=== PATIENT | female | born 1945 | race Caucasian/White ===

== ENCOUNTER 2017-11-26 07:00 | Inpatient (IN) | payer OTHER ==
[~2017-11-26] VITALS: Ht 154.9 cm; Wt 73.5 kg
[2017-11-26] MEDS ORDERED: METROPOLOL PO (09:02)
[2017-11-26] MEDS ORDERED: CARDIZEM CD240 MG PO (09:03)
[2017-11-26] MEDS ORDERED: HCTZ PO (09:03)
[2017-11-26] MEDS ORDERED: LIPITOR40 MG PO (09:04)
[2017-11-26] MEDS ORDERED: VASOFLEX D1 CA1 EACH PO (09:04)
[2017-11-26] MEDS ORDERED: HYDRALAZINE HCL25 MG PO (09:04)
[2017-11-26] MEDS ORDERED: OMEPRAZOLE40 MG PO (09:05)
[2017-11-26] MEDS ORDERED: INTEGRA CAPSUL1 EACH PO (09:05)
[2017-11-26] MEDS ORDERED: FLONASE16 GM (09:06)
[2017-11-26] MEDS ORDERED: [UNRECOGNIZED DRUG - OTHER] PO (09:06)
[2017-11-26] MEDS ORDERED: SINGULAIR10 MG PO (09:07)
[2017-12-06] MEDS ORDERED: OXYC1TAB9 PO (08:22)
[2017-12-06] MEDS ORDERED: INTEGRA PLUS C1 EACH PO (08:22)
[2017-12-06] MEDS ORDERED: XARELTO10 MG PO (08:22)
== END 2017-12-06 12:32 | DRG 470 ==
LOC: SURG 12-03 06:34 → O/R 12-03 06:34 → SURH 12-03 07:00 → SURG 12-03 13:20
PROVIDERS: Orthopaedic Surgery Sports Medicine
PROC: 0SRD0J9 Replacement of Left Knee Joint with Synthetic Substitute, Cemented, Open Approach (ICD-10-PCS; principal; 2017-12-03 07:30)
DX: M17.12 Unilateral primary osteoarthritis, left knee (principal); I10 Essential (primary) hypertension

== ENCOUNTER 2020-07-22 07:00 | Inpatient (IN) | payer OTHER ==
[~2020-07-22] VITALS: Ht 144.8 cm; Wt 72.6 kg
[~2020-07-22 07:00] MED LIST: CARDIZEM CD240 MG PO; FLONASE16 GM; HCTZ PO; HYDRALAZINE HCL25 MG PO; INTEGRA CAPSUL1 EACH PO; INTEGRA PLUS C1 EACH PO; LIPITOR40 MG PO; METROPOLOL PO; OMEPRAZOLE40 MG PO; OXYC1TAB9 PO; SINGULAIR10 MG PO; VASOFLEX D1 CA1 EACH PO; XARELTO10 MG PO; [UNRECOGNIZED DRUG - OTHER] PO
[2020-07-22] MEDS ORDERED: CALTRATE 600 +1 EACH PO (08:02)
[2020-07-22] MEDS ORDERED: VASOF PO (08:02)
[2020-07-22] MEDS ORDERED: FORTAMET500 MG PO (08:03)
[2020-07-22] MEDS ORDERED: ALENDRONATE SOD70 MG PO (08:03)
[2020-07-22] MEDS ORDERED: CARTIA XT240 MG PO (08:04)
[2020-07-22] MEDS ORDERED: ATACAND32 MG PO (08:04)
[2020-07-27] MEDS ORDERED: INTEGRA PLUS C1 EACH PO (08:36)
[2020-07-27] MEDS ORDERED: VASOFLEX TABLE1 EACH PO (08:48)
[2020-07-27] MEDS ORDERED: HYDROCHLOROTHIA25 MG PO (08:49)
[2020-07-27] MEDS ORDERED: METOPROLOL SUC100 MG PO (08:51)
[2020-07-28] MEDS ORDERED: OXYC1TAB9 PO (07:45)
[2020-07-28] MEDS ORDERED: XARELTO10 MG PO (07:45)
[2020-07-28] MEDS ORDERED: INTEGRA PLUS C1 EACH PO (07:45)
[2020-07-28] MEDS ORDERED: BACTRIM DS TAB1 EACH PO (07:45)
== END 2020-07-28 17:44 | DRG 470 ==
LOC: SURG 07-26 06:10 → O/R 07-26 06:10 → SURG 07-26 13:13
PROVIDERS: ADMIT Orthopaedic Surgery Sports Medicine; ATTEND Orthopaedic Surgery Sports Medicine
PROC: 0SRC0J9 Replacement of Right Knee Joint with Synthetic Substitute, Cemented, Open Approach (ICD-10-PCS; principal; 2020-07-26 09:30)
DX: M17.11 Unilateral primary osteoarthritis, right knee (principal); I10 Essential (primary) hypertension; D64.9 Anemia, unspecified

== ENCOUNTER 2023-07-25 08:22 | Inpatient (IN) | payer OTHER ==
[~2023-07-25] VITALS: Ht 152.4 cm; Wt 73.5 kg
[~2023-07-25 08:22] MED LIST changes: +ALENDRONATE SOD70 MG PO; +ATACAND32 MG PO; +BACTRIM DS TAB1 EACH PO; +CALTRATE 600 +1 EACH PO; +CARTIA XT240 MG PO; +FORTAMET500 MG PO; +HYDROCHLOROTHIA25 MG PO; +METOPROLOL SUC100 MG PO; +VASOF PO; +VASOFLEX TABLE1 EACH PO
[2023-07-31] MEDS ORDERED: FOLIVANE-PLUS1 EACH (15:17)
[2023-07-31] MEDS ORDERED: HYDROCHLOROTHIA25 MG (15:17)
[2023-07-31 20:47] LABS: ABG PH 7.332 (7.35-7.45); ABG PO2 142.5 mmHg (80-100); ABG pCO2 46.3 mmHg (35-45); BASE EXCESS -2.2 mmol/l; BICARBONATE 24 mmol/l (23-25); SaO2 98.9 %
[2023-07-31 20:59] LABS: HEMATOCRIT 40.2 % (36.0-45.00); HEMOGLOBIN 13.5 g/dL (12.0-15.00); MEAN CELL VOLUME 92.5 fL (80.00-100.00); MEAN CORPUSCULAR HEMOGLOBIN 31.1 pg (27.00-32.0); MEAN CORPUSCULAR HGB CONC 33.7 g/dl (32.0-36.0); PLATELET COUNT 262 K/uL (150-450); RED BLOOD COUNT 4.35 M/uL (4.00-6.00); RED CELL DISTRIBUTION WIDTH 15.2 % (11.5-14.5)
[2023-08-01 06:42] LABS: HEMATOCRIT 39.5 % (36.0-45.00); HEMOGLOBIN 12.9 g/dL (12.0-15.00); MEAN CELL VOLUME 93.7 fL (80.00-100.00); MEAN CORPUSCULAR HEMOGLOBIN 30.6 pg (27.00-32.0); MEAN CORPUSCULAR HGB CONC 32.6 g/dl (32.0-36.0); PLATELET COUNT 243 K/uL (150-450); RED BLOOD COUNT 4.21 M/uL (4.00-6.00); RED CELL DISTRIBUTION WIDTH 14.4 % (11.5-14.5)
[2023-08-01 07:38] LABS: ALBUMIN 2.7 gm/dL (3.4-5.0); CALCIUM 8.3 mg/dL (8.5-10.1); CREATININE SERUM 0.6 mg/dL (0.55-1.02); GFR 97.46; POTASSIUM 4.03 mEq/L (3.5-5.1)
[2023-08-01 09:05] LABS: ABG PH 7.407 (7.35-7.45); ABG PO2 85.6 mmHg (80-100); ABG pCO2 38.6 mmHg (35-45); BASE EXCESS -0.6 mmol/l; BICARBONATE 23.8 mmol/l (23-25); SaO2 96.5 %
[2023-08-02 07:14] LABS: HEMATOCRIT 36.8 % (36.0-45.00); MEAN CELL VOLUME 94.2 fL (80.00-100.00); MEAN CORPUSCULAR HEMOGLOBIN 30.6 pg (27.00-32.0); MEAN CORPUSCULAR HGB CONC 32.5 g/dl (32.0-36.0); PLATELET COUNT 232 K/uL (150-450); RED BLOOD COUNT 3.91 M/uL (4.00-6.00); RED CELL DISTRIBUTION WIDTH 14.9 % (11.5-14.5)
[2023-08-02 07:27] LABS: CALCIUM 8.6 mg/dL (8.5-10.1); CREATININE SERUM 0.64 mg/dL (0.55-1.02); GFR 90.46; POTASSIUM 4.12 mEq/L (3.5-5.1)
== END 2023-08-02 13:47 | disposition home or self-care (01) | DRG 330 ==
LOC: O/R 07-31 09:05 → SURH 07-31 11:45 → SURG 07-31 18:38 → SURH 07-31 19:00 → SURG 08-02 13:47
PROVIDERS: Internal Medicine Geriatric Medicine; ADMIT Colon & Rectal Surgery; ATTEND Colon & Rectal Surgery
PROC: 0DBP4ZZ Excision of Rectum, Percutaneous Endoscopic Approach (ICD-10-PCS; 2023-07-31)
PROC: 07BB4ZX Excision of Mesenteric Lymphatic, Percutaneous Endoscopic Approach, Diagnostic (ICD-10-PCS; 2023-07-31)
PROC: 0DTN4ZZ Resection of Sigmoid Colon, Percutaneous Endoscopic Approach (ICD-10-PCS; principal; 2023-07-31 19:00)
DX: C19 Malignant neoplasm of rectosigmoid junction (principal); K92.1 Melena; K66.0 Peritoneal adhesions (postprocedural) (postinfection); Z85.048 Personal history of other malignant neoplasm of rectum, rectosigmoid junction, and anus

== ENCOUNTER → 2023-07-26 07:49 | Outpatient (CLI) | payer OTHER | END | disposition home or self-care (01) | LOC: LAB 07:49 | PROVIDERS: ATTEND Colon & Rectal Surgery | DX: Z03.818 Encounter for observation for suspected exposure to other biological agents ruled out (principal); Z20.822 Contact with and (suspected) exposure to COVID-19 ==

== ENCOUNTER 2023-10-03 05:42 | Day surgery (SDC) | payer OTHER ==
[2023-09-26 09:55] LABS: HEMATOCRIT 41.4 % (36.0-45.00); MEAN CORPUSCULAR HEMOGLOBIN 31.1 pg (27.00-32.0); MEAN CORPUSCULAR HGB CONC 33.7 g/dl (32.0-36.0); PLATELET COUNT 249 K/uL (150-450); RED CELL DISTRIBUTION WIDTH 15.1 % (11.5-14.5)
[2023-09-26 10:37] LABS: INR 0.99; PARTIAL THROMBOPLASTIN TIME 24.3 SECONDS (22.0-34.0); PROTHROMBIN TIME 10.4 SECONDS (9.0-11.5)
[2023-09-26 10:49] LABS: BILIRUBIN TOTAL 0.58 mg/dL (0.3-1.2); CALCIUM 9.9 mg/dL (8.5-10.1); CREATININE SERUM 0.56 mg/dL (0.55-1.02); GFR 105.25; GLOBULINA 3.8 G/DL (2.4-3.5); POTASSIUM 4.26 mEq/L (3.5-5.1); TOTAL PROTEIN 7.8 gm/dL (6.4-8.2)
[~2023-10-03 05:42] MED LIST changes: +FOLIVANE-PLUS1 EACH; +HYDROCHLOROTHIA25 MG
== END 2023-10-03 12:05 | disposition home or self-care (01) ==
LOC: CIR.AMB 05:42
PROVIDERS: ATTEND Colon & Rectal Surgery
DX: C19 Malignant neoplasm of rectosigmoid junction (principal); K92.1 Melena; Z20.822 Contact with and (suspected) exposure to COVID-19; I11.9 Hypertensive heart disease without heart failure